=== PATIENT | female | born 1945 | race African-American/Black ===

== ENCOUNTER 2018-04-15 10:11 | Emergency (ER) | payer OTHER ==
--- NOTE | 2018-04-15 10:21 | PDOC ---
History of Present Illness - General Chief Complaint: Injury Stated Complaint: LEFT ANKLE PAIN Time Seen by Provider: 04/15/18 10:12 - History of Present Illness Initial Comments: 04/15/18 10:22 72yo female with hx of COPD and chronic neck and back pain presents for eval of L leg pain. Pt states she missed step yesterday and twisted her L ankle. States pain to the L hip, knee, ankle/foot. Pt states her leg buckled, but she didn't fall. No head injury. No new neck or back pain. No weakness. Pt arrives wearing a cam boot walker to L leg that was her nieces. Pt with swelling/ ecchymosis to L lateral malleolus and across foot. Pt with pain to distal fib and lateral malleolus and across 3-5 metatarsals of midfoot. Pt ambulated from the wheelchair to the bed. Pt denies flores. No new neck pain. No cp/sob. No abd pain. No n/v/d. No hematuria. No new back pain. No other complaints. Pt took Tylenol #4 around 3am. PMhx: chronic neck and back pain, copd PShx: R knee replacment, R hip sx Allergies: doxy, etodolac, adhesive tape, trimethobenzamide Past History - Past Medical History Allergies/Adverse Reactions: Allergies Allergy/AdvReac Type Severity Reaction Status Date / Time adhesive tape Allergy Unknown Verified 04/15/18 10:13 doxycycline Allergy Unknown Verified 04/15/18 10:13 etodolac Allergy Unknown Verified 04/15/18 10:13 trimethobenzamide Allergy Unknown Verified 04/15/18 10:13 [From [facility]] Home Medications: Ambulatory Orders Acetaminophen with Codeine [Tylenol with Codeine #4 Tablet] 1 each PO TID PRN Albuterol 0.083% Nebulizer Adelaida [Ventolin 0.083%] 1 neb NEB QID 04/15/18 Fluticasone/Vilanterol [Breo Ellipta 200-25 Mcg INH] 1 each IH DAILY 04/15/18 Gabapentin [Neurontin] 300 mg PO TID 04/15/18 Pravastatin Sodium [Pravachol] 40 mg PO HS 04/15/18 Tizanidine HCl [Zanaflex] 4 mg PO BID 04/15/18 Triamterene/Hydrochlorothiazid [Triamterene-Hctz 37.5-25 mg Tb] 1 each PO DAILY 04/15/18 Umeclidinium [place] [Incruse Ellipta] 62.5 mcg IH DAILY 04/15/18 Venlafaxine HCl ER [Effexor Xr -] 75 mg PO DAILY 04/15/18 Review of Systems - Review of Systems Able to Perform ROS?: Yes Is the patient limited [place] proficient: No Constitutional: No: Chills, Fever HEENTM: No: Nose Congestion, Throat Pain Respiratory: No: Cough, Shortness of Breath Cardiac (ROS): No: Chest Pain ABD/GI: No: Diarrhea, Nausea, Vomiting, Abdominal cramping : No: Burning, Hematuria Musculoskeletal: Yes: Joint Pain, Joint Swelling. No: Back Pain, Neck Pain Integumentary: Yes: Bruising Neurological: No: Headache, Numbness, Paresthesia All Other Systems: Reviewed and Negative *Physical Exam - Vital Signs 04/15/18 10:27 Selected Entries 04/15/18 10:12 Temperature 98.9 F Pulse Rate 105 H Respiratory 20 Rate Blood Pressure 139/78 Blood Pressure 98 Mean O2 Sat by Pulse 95 Oximetry (%) Weight 94.347 kg - Physical Exam General Appearance: Yes: Nourished, Appropriately Dressed, Other (appears uncomfortable) HEENT: positive: EOMI, Normal Voice Neck: positive: Supple. negative: Tender, Decreased range of motion, Tender lateral, Tender midline Respiratory/Chest: positive: Lungs Clear, Normal Breath Sounds. negative: Chest Tender, Respiratory Distress, Decreased Breath Sounds, Wheezing Cardiovascular: positive: Regular Rhythm, S1, S2, Tachycardia Gastrointestinal/Abdominal: positive: Normal Bowel Sounds, Soft. negative: Tender, Guarding, Rebound, Tenderness Musculoskeletal: positive: Normal Inspection. 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 negative: Numbness, Sensory Deficit Procedures - Splinting Splint Location: Left: Ankle Pre-Proc Neuro Vasc Exam: normal Hand-Made Type: orthoglass Splint Type: Yes: Posterior, Short Leg Post-Proc Neuro Vasc Exam: normal [place] Bandage: yes, 6" Sling: No Progress: 04/15/18 11:42 pt tolerated the procedure well Medical Decision Making - Medical Decision Making 04/15/18 10:30 a/p: 72yo female with L foot and ankle injury yesterday -suspect poss fracture -has been ambulatory, low suspicion for hip fracture, however will image given R hip sx -will obtain xrays of L foot, ankle, tib/fib, knee, hip/pelvis -will medicate with percocet 04/15/18 10:31 pt to xray 04/15/18 11:38 distal fibula fx with widened mortise discussed xray imaging results with [facility] patient pt placed in a splint and placed on crutches pt visiting from [place] has an orthopedist in [place] will give DR. Donnelly for follow up this week pt has tylenol #4 at home and does not need further pain medication. *DC/Admit/Observation/Transfer Diagnosis at time of Disposition: Fracture of distal fibula - Discharge Dispostion Disposition: HOME Condition at time of disposition: Stable Decision to Admit order: No - Referrals Referrals: Vaughn Donnelly MD [Staff Physician] - - Patient Instructions Printed Discharge Instructions: How to Prevent Falls, DI for Ankle Fracture, Fibula Shaft Fracture Additional Instructions: Please do not get the splint wet. Please use the crutches when walking. Please apply ice - 20min on and 20 min off to the affected site. Please take the pain medication as prescribed. Please keep the foot elevated. Please follow up with the orthopedist this week. Please also follow up with your orthopedist when you return to [place]. Please return to the ED with any further concerns or complaints. - Post Discharge Activity - Attestations Physician Attestion: 04/15/18 11:41 I, Dr. Regina Castaneda, DO, attest that this document has been prepared under my direction and personally reviewed by me in its entirety. I further attest, that it accurately reflects all work, treatment, procedures and medical decision -making performed by me.
[2018-04-15 10:25] VITALS: BP 139/78; PULSE 105; TEMP 98.9; BMI 29.8
== END 2018-04-15 11:53 | disposition home or self-care (01) ==
LOC: FER 10:11
PROC: 2W3RX1Z Immobilization of Left Lower Leg using Splint (ICD-10-PCS; principal; 2018-04-15)
DX: S82.402A Unspecified fracture of shaft of left fibula, initial encounter for closed fracture (principal); W18.39XA Other fall on same level, initial encounter; Y93.89 Activity, other specified; Y92.9 Unspecified place or not applicable
CPT/HCPCS: 73523-TC-FY; 73562-TC-LT-FY; 73590-TC-LT-FY; 73610-TC-LT-FY; 73630-TC-LT; 99282-25